=== PATIENT | male | born 1970 | race African-American/Black ===

== ENCOUNTER 2020-04-10 09:55 | Emergency (ER) | payer BC ==
[~2020-04-10] VITALS: Ht 175.3 cm; Wt 95.0 kg
[2020-04-10 10:02] VITALS: BP 169/109
== END 2020-04-10 11:26 | disposition home or self-care (01) ==
LOC: ER 10:46
DX: R05 Cough (principal); Z20.828 Contact with and (suspected) exposure to other viral communicable diseases; R06.02 Shortness of breath; R53.1 Weakness
CPT/HCPCS: 71045; 99284; U0003

== ENCOUNTER 2022-04-21 17:41 | Emergency (ER) | payer SELFPAY ==
[~2022-04-21] VITALS: Ht 175.3 cm; Wt 87.0 kg
[2022-04-21 17:53] VITALS: BP 224/101
[2022-04-21 18:31] LABS: BASOPHILS % 0.7 % (0.0-2.0); EOSINOPHILS % 0.3 % (0.0-5.0); HEMATOCRIT. 47.8 % (42.0-52.0); HEMOGLOBIN. 15.5 g/dL (14.0-18.0); MEAN CORPUSCULAR HEMOGLOBIN 27.7 pg (28.0-32.0); MEAN CORPUSCULAR VOLUME 85.2 fL (80.0-94.0); MEAN PLATELET VOLUME 10.2 fl (7.4-10.4); MONOCYTES % 6.3 % (2.0-8.0); NEUTROPHILS % 64.7 % (40.0-76.0); PLATELET 171 x1000/uL (130-400); RED BLOOD CELL COUNT 5.61 mill/uL (4.7-6.1); RED CELL DISTRIBUTION WIDTH 14.1 % (11.6-14.6)
[2022-04-21 18:52] LABS: CHLORIDE 108 mEq/L (98-107)
[2022-04-22] MEDS ORDERED: NIFEDIPINE 10MG CAPSULE PO ONE (00:45)
[2022-04-22] MEDS ORDERED: NIFE-33 MT (02:08)
== END 2022-04-22 02:34 | disposition home or self-care (01) ==
LOC: ER 17:41
DX: I10 Essential (primary) hypertension (principal)
CPT/HCPCS: 36415; 71045; 80053; 83880; 84484; 85025; 93005; 99285

== ENCOUNTER 2022-05-28 16:08 | Emergency (ER) | payer SELFPAY ==
[~2022-05-28] VITALS: Ht 177.8 cm; Wt 82.0 kg
[~2022-05-28 16:08] MED LIST: NIFE-33 MT
[2022-05-28 16:11] VITALS: BP 106/76
[2022-05-28 17:19] LABS: BASOPHILS % 0.6 % (0.0-2.0); EOSINOPHILS % 0.2 % (0.0-5.0); HEMATOCRIT. 47.1 % (42.0-52.0); HEMOGLOBIN. 15.5 g/dL (14.0-18.0); LYMPHOCYTES % 17.5 % (20.0-50.0); MEAN CORPUSCULAR HEMOGLOBIN 27.3 pg (28.0-32.0); MEAN CORPUSCULAR VOLUME 83.3 fL (80.0-94.0); MEAN PLATELET VOLUME 8.9 fl (7.4-10.4); MONOCYTES % 5.2 % (2.0-8.0); NEUTROPHILS % 76.5 % (40.0-76.0); PLATELET 246 x1000/uL (130-400); RED BLOOD CELL COUNT 5.66 mill/uL (4.7-6.1); RED CELL DISTRIBUTION WIDTH 14.3 % (11.6-14.6)
[2022-05-28 17:28] LABS: CHLORIDE 106 mEq/L (98-107)
== END 2022-05-28 18:58 | disposition left against medical advice (07) ==
LOC: ER 16:08
DX: Z53.21 Procedure and treatment not carried out due to patient leaving prior to being seen by health care provider (principal)
CPT/HCPCS: 36415; 71045; 80053; 83880; 85025; 93005; 99285

== ENCOUNTER 2022-06-14 17:30 | Emergency (ER) | payer SELFPAY ==
[~2022-06-14] VITALS: Ht 175.3 cm; Wt 82.0 kg
[2022-06-14 17:32] VITALS: BP 165/99
== END 2022-06-14 19:30 | disposition left against medical advice (07) ==
LOC: ER 17:30
DX: Z53.21 Procedure and treatment not carried out due to patient leaving prior to being seen by health care provider (principal); R07.89 Other chest pain
CPT/HCPCS: 93005